=== PATIENT | male | born 1970 | race Hispanic/Latino ===

== ENCOUNTER 2018-08-17 22:29 | Emergency (ER) | payer SELFPAY ==
[2018-08-17] MEDS ORDERED: LIDOCAINE 1% 20 ML MDV ONE (23:08)
[2018-08-17] MEDS ORDERED: LIDOCAINE 1% W/EPI 1:100,000 MDV 50 ML VIAL ONE (23:11)
--- NOTE | 2018-08-18 00:37 | EDPHYS ---
Physician Documentation [facility] Name: Xavier Damon Age: 47 yrs Sex: Male : 1970 Arrival Date: 08/17/2018 Time: 22:33 Bed 23 Private MD: ED Physician Carter Nguyen HPI: 08/17 22:56 This 47 yrs old Male presents to ER via Ambulatory with complaints of Insect cp Bite. 22:56 the patient presents with a swollen area of the right lower abdomen in beltline area. cp 22:56 Onset: The symptoms/episode began/occurred 2 day(s) ago. cp 22:56 Possible cause(s): insect bite. Associated signs and symptoms: Pertinent positives: cp erythema, Pertinent negatives: discharge, drainage, fever. Historical: - Allergies: 22:36 No Known Allergies; ed1 - Home Meds: 22:36 None [Active]; ed1 - PMHx: 22:36 None; ed1 - PSHx: 22:36 None; ed1 - Immunization history:: Adult Immunizations up to date. - Social history:: Smoking status: Patient uses tobacco products, smokes one pack cigarettes per day. - Ebola Screening: : Patient negative for fever greater than or equal to 101.5 degrees Fahrenheit, and additional compatible Ebola Virus Disease symptoms Patient denies exposure to infectious person Patient denies travel to an Ebola-affected area in the 21 days before illness onset No symptoms or risks identified at this time. ROS: 23:05 Constitutional: Negative for body aches, chills, fever. cp 23:05 Eyes: Negative for injury, pain, redness, and discharge. cp 23:05 Cardiovascular: Negative for chest pain. 23:05 Respiratory: Negative for cough, shortness of breath, wheezing. 23:05 Skin: Positive for abscess, cellulitis, of the right lower quadrant of abdomen in beltline area. 23:05 All other systems are negative. Exam: 23:15 Constitutional: The patient appears in no acute distress, alert, awake, non-toxic, well cp developed, well nourished. 23:15 Head/Face: Normocephalic, atraumatic. cp 23:15 Chest/axilla: Inspection: normal. 23:15 Cardiovascular: Rate: normal. 23:15 Respiratory: the patient does not display signs of respiratory distress, Respirations: normal. 23:15 Abdomen/GI: Bowel sounds: active, all quadrants, Palpation: abdomen is soft and non-tender, in all quadrants. 23:15 Skin: abscess, that is small, of the right lower abdomen in area of beltline, with surrounding cellulitis, that is mild. Vital Signs: 22:36 BP 130 / 72; Pulse 85; Resp 18; Temp 97.3; Pulse Ox 98% on R/A; Weight 77.11 kg; Height ed1 5 ft. 7 in. (170.18 cm); Pain 9/10; 08/18 00:47 BP 125 / 78; Pulse 88; Resp 18; Temp 99; Pulse Ox 100% on R/A; Pain 0/10; mg2 08/17 22:36 Body Mass Index 26.63 (77.11 kg, 170.18 cm) ed1 Procedures: 00:33 I \T\ D: Incision and drainage was performed for an abscess of the right lower abdomen in cp area of beltline Prepped with Betadine, Anesthetized with 4 ml's 1% Lidocaine w/ Epi. Incised with #11 blade. Drained small amount purulent fluid. Cultures obtained. Packed with iodoform gauze, Dressing: sterile 4x4 gauze, the patient tolerated the procedure well. MDM: 08/17 22:41 Patient medically screened. [facility] 08/18 00:35 Data reviewed: vital signs, nurses notes, and as a result, I will discharge patient. 00:35 Differential diagnosis: abscess, cellulitis, insect bite. Counseling: I had a detailed discussion with the patient and/or guardian regarding: the historical points, exam findings, and any diagnostic results supporting the discharge/admit diagnosis, the need for outpatient follow up, a family practitioner, to return to the emergency department if symptoms worsen or persist or if there are any questions or concerns that arise at home. Response to treatment: the patient's symptoms have markedly improved after treatment, and as a result, I will discharge patient. 08/17 22:54 Order name: I\T\D Setup; Complete Time: 22:59 cp 08/18 00:06 Order name: Wound dressing; Complete Time: 00:31 cp Administered Medications: 00:31 Drug: Lidocaine-Epinephrine -1%: (1:100,000) 5 ml Volume: 20 ml; Route: Infiltration; mg2 00:32 Follow up: Response: No adverse reaction; Marked relief of symptoms mg2 00:31 Drug: Clindamycin 300 mg Route: PO; mg2 00:32 Follow up: Response: No adverse reaction; Medication administered at discharge. mg2 00:31 Drug: Bactrim (160 mg-800 mg (DS) 1 tablet Route: PO; mg2 00:32 Follow up: Response: No adverse reaction; Medication administered at discharge. mg2 Disposition: 08/18/18 00:36 Discharged to Home. Impression: Cutaneous abscess of abdominal wall - with cellulitis. - Condition is Stable. - Discharge Instructions: Skin Abscess, Incision and Drainage, Incision and Drainage, Care After. - Prescriptions for Clindamycin HCl 300 mg Oral Capsule - take 1 capsule by ORAL route every 6 hours for 10 days; 40 capsule. Bactrim DS 800- 160 mg Oral Tablet - take 1 tablet by ORAL route every 12 hours for 10 days; 20 tablet. - Medication Reconciliation Form, Thank You Letter, Antibiotic Education, Prescription Opioid Use form. - Follow up: Private Physician; When: 2 - 3 days; Reason: Wound Recheck. - Problem is new. - Symptoms have improved. Addendum: 08/20/2018 09:20 Co-signature as Attending Physician, Carter Nguyen MD I agree with the assessment and c chun plan of care. Signatures: Carter Nguyen MD MD cha Riggs, Erika, RN RN ed1 Carter Watson PA PA cp Gardose, Michele, RN RN mg2 Corrections: (The following items were deleted from the chart) 08/18 00:50 00:36 08/18/2018 00:36 Discharged to Home. Impression: Cutaneous abscess of abdominal mg2 wall - with cellulitis. Condition is Stable. Forms are Medication Reconciliation Form, Thank You Letter, Antibiotic Education, Prescription Opioid Use. Follow up: Private Physician; When: 2 - 3 days; Reason: Wound Recheck. Problem is new. Symptoms have improved. cp
--- NOTE | 2018-08-18 00:37 | ER ---
Nurse's Notes [facility] Name: Xavier Damon Age: 47 yrs Sex: Male : 1970 Arrival Date: 08/17/2018 Time: 22:33 Bed 23 Private MD: Diagnosis: Cutaneous abscess of abdominal wall-with cellulitis Presentation: 08/17 22:33 Presenting complaint: Patient states: I noticed this bump on my stomach like two days ed1 ago. It started as a little pimple. Transition of care: patient was not received from another setting of care. Onset of symptoms was August 15, 2018. Risk Assessment: Do you want to hurt yourself or someone else? Patient reports no desire to harm self or others. Initial Sepsis Screen: Does the patient meet any 2 criteria? No. Patient's initial sepsis screen is negative. Does the patient have a suspected source of infection? No. Patient's initial sepsis screen is negative. Care prior to arrival: None. 22:33 Method Of Arrival: Ambulatory ed1 22:33 Acuity: BOBBY 4 ed1 Triage Assessment: 22:36 Bite description: bite sustained to right lower quadrant by an unknown animal, animal ed1 information: vaccination(s) is not applicable. General: Appears in no apparent distress. Behavior is calm, cooperative. Pain: Complains of pain in right lower quadrant Pain currently is 9 out of 10 on a pain scale. Historical: - Allergies: 22:36 No Known Allergies; ed1 - Home Meds: 22:36 None [Active]; ed1 - PMHx: 22:36 None; ed1 - PSHx: 22:36 None; ed1 - Immunization history:: Adult Immunizations up to date. - Social history:: Smoking status: Patient uses tobacco products, smokes one pack cigarettes per day. - Ebola Screening: : Patient negative for fever greater than or equal to 101.5 degrees Fahrenheit, and additional compatible Ebola Virus Disease symptoms Patient denies exposure to infectious person Patient denies travel to an Ebola-affected area in the 21 days before illness onset No symptoms or risks identified at this time. Screenin:39 Abuse screen: Denies threats or abuse. Denies injuries from another. Nutritional mg2 screening: No deficits noted. Tuberculosis screening: No symptoms or risk factors identified. Fall Risk None identified. Assessment: 22:41 General: Appears in no apparent distress. comfortable, Behavior is calm, cooperative. mg2 Pain: Complains of pain in right lower quadrant Pain does not radiate. Pain currently is 6 out of 10 on a pain scale. Quality of pain is described as aching, Pain began gradually, 2-3 days ago. Is intermittent. Neuro: Level of Consciousness is awake, alert, obeys commands, Oriented to person, place, time, situation. Cardiovascular: Capillary refill < 3 seconds Patient's skin is warm and dry. Respiratory: Airway is patent Respiratory effort is even, unlabored, Respiratory pattern is regular, symmetrical. GI: No signs and/or symptoms were reported involving the gastrointestinal system. : No signs and/or symptoms were reported regarding the genitourinary system. EENT: No signs and/or symptoms were reported regarding the EENT system. Derm: Skin red/warm to touch in the affected area. Musculoskeletal: No signs and/or symptoms reported regarding the musculoskeletal system. Vital Signs: 22:36 BP 130 / 72; Pulse 85; Resp 18; Temp 97.3; Pulse Ox 98% on R/A; Weight 77.11 kg; Height ed1 5 ft. 7 in. (170.18 cm); Pain 9/10; 08/18 00:47 BP 125 / 78; Pulse 88; Resp 18; Temp 99; Pulse Ox 100% on R/A; Pain 0/10; mg2 05 22:36 Body Mass Index 26.63 (77.11 kg, 170.18 cm) ed1 ED Course: 08/17 22:33 Patient arrived in ED. am2 22:36 Triage completed. ed1 22:36 Arm band placed on right wrist. ed1 22:38 Paramjit Novoa, DELICIA is Primary Nurse. mg2 22:40 Carter Watson PA is PHCP. cp 22:40 Carter Nguyen MD is Attending Physician. cp 22:41 Patient did not have IV access during this emergency room visit. mg2 22:43 Patient has correct armband on for positive identification. Door closed. Noise mg2 minimized. 08/18 00:49 Assist provider with I \T\ D: of an abscess on right abdomen Set up I\T\D tray. Performed mg 2 by Carter SANTORO Wound packed. iodoform gauze, Dressing with Patient tolerated well. Wound care:. Administered Medications: 00:31 Drug: Lidocaine-Epinephrine -1%: (1:100,000) 5 ml Volume: 20 ml; Route: Infiltration; mg2 00:32 Follow up: Response: No adverse reaction; Marked relief of symptoms mg2 00:31 Drug: Clindamycin 300 mg Route: PO; mg2 00:32 Follow up: Response: No adverse reaction; Medication administered at discharge. mg2 00:31 Drug: Bactrim (160 mg-800 mg (DS) 1 tablet Route: PO; mg2 00:32 Follow up: Response: No adverse reaction; Medication administered at discharge. mg2 Outcome: 00:36 Discharge ordered by MD. cp 00:49 Discharged to home ambulatory, with family. mg2 00:49 Condition: improved 00:49 Discharge instructions given to patient, family, Instructed on discharge instructions, follow up and referral plans. medication usage, Demonstrated understanding of instructions, follow-up care, medications, Prescriptions given X 2. 00:50 Patient left the ED. mg2 Signatures: Filomena Crawford RN RN ed1 Carter Watson PA PA cp Arleen Villalta am2 Paramjit Novoa RN RN mg2 Corrections: (The following items were deleted from the chart) 08/17 22:44 22:41 Derm: Skin red/warm to touch mg2 mg2 08/18 00:50 05 22:41 No provider procedures requiring assistance completed. mg2 mg2
[2018-08-18] MEDS ORDERED: CLINDAMYCIN HCL 150 MG CAP ONE ×2 (00:40→00:41)
[2018-08-18] MEDS ORDERED: SMZ./TMP. 800/160 MG TABLET ONE ×2 (00:40→00:41)
== END 2018-08-18 00:50 | disposition home or self-care (01) ==
LOC: ER 22:29
PROC: 0J980ZZ Drainage of Abdomen Subcutaneous Tissue and Fascia, Open Approach (ICD-10-PCS; principal; 2018-08-18)
DX: L03.311 Cellulitis of abdominal wall (principal); F17.210 Nicotine dependence, cigarettes, uncomplicated
CPT/HCPCS: 99284